=== PATIENT | female | born 1940 | race Caucasian/White ===

== ENCOUNTER 2025-07-21 19:49 | Emergency (ER) | payer MEDICARE, OTHER, SELFPAY ==
[2025-07-21] VITALS (14 sets, daily range): BP systolic 90–174; BP diastolic 46–82; PULSE 65–82; RESP 15–23; TEMP 36.4; O2SAT 91–100; BMI 25.3
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
--- NOTE | 2025-07-21 20:24 | ECG_ITS ---
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
[2025-07-21] MEDS: morphine 4 mg/mL SDV 1 mL 2 MG IVP ×2 (20:38→23:41)
[2025-07-21 20:58] LABS: Hematocrit 28.1 % (36-47); Hemoglobin 8.70 g/dL (11.27-16.99); Mean Corpuscular HGB Conc 31.0 g/dL (30-55); Mean Corpuscular Hemoglobin 29.6 pg (27-33); Mean Corpuscular Volume 95.6 fl (85-98); Nucleated Red Blood Cells % 0 %; Platelet Count 143 10^3/cmm (157-399); Red Blood Count 2.94 10^6/uL (3.85-5.65); White Blood Count 21.24 10^3/uL (3.29-11.43)
[2025-07-21 21:15] LABS: INR 1.01 (0.8-1.2); Prothrombin Time 14.00 SECONDS (12.1-14.9)
[2025-07-21 21:16] LABS: Slide Review Slide Review Perform
[2025-07-21 21:17] LABS: Partial Thromboplastin Time 26.2 SECONDS (23.9-36.7)
[2025-07-21 21:20] LABS: Troponin(5th) Baseline 24 ng/L (0-10)
[2025-07-21 21:33] LABS: Alanine Aminotransferase 14 U/L (0-33); Albumin Level 4.3 g/dL (3.5-5.2); Alkaline Phosphatase 81 U/L (35-105); Anion Gap 13.0 (5-19); Aspartate Amino Transferase 27 U/L (0-32); Blood Urea Nitrogen 17 mg/dL (8-23); Calcium 9.2 mg/dL (8.5-10.5); Carbon Dioxide 30 mmol/L (22-29); Chloride 94 mmol/L (98-107); Globulin 1.2 g/dL (1.3-4.6); Glucose 150 mg/dL (65-115); NT Pro B Type Natriuretic Pept 856 pg/mL (0-450); Osmolality Calculated 280 mOsm/kg (285-295); Potassium 4.0 mmol/L (3.5-5.1); Sodium 133 mmol/L (136-145); Total Protein 5.5 g/dL (6.6-8.7)
[2025-07-21 21:48] LABS: Glucose Urine UA Negative (Normal); Nitrate Urine Negative (Negative); Specific Gravity, Urine 1.005 (1.005-1.030)
[2025-07-21 21:50] LABS: Add Urine Microscopic? YES
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
[2025-07-22] VITALS (26 sets, daily range): BP systolic 82–145; BP diastolic 40–75; PULSE 69–89; RESP 14–20; TEMP 36.6; O2SAT 89–99
[2025-07-22] MEDS: HYDROmorphone 0.5 MG/0.5 ML INJ IVP (01:38)
[2025-07-22 04:21] LABS: Hematocrit 22.2 % (36-47); Hemoglobin 7.00 g/dL (11.27-16.99); Mean Corpuscular HGB Conc 31.5 g/dL (30-55); Mean Corpuscular Hemoglobin 29.9 pg (27-33); Mean Corpuscular Volume 94.9 fl (85-98); Nucleated Red Blood Cells % 0 %; Platelet Count 131 10^3/cmm (157-399); Red Blood Count 2.34 10^6/uL (3.85-5.65); White Blood Count 13.99 10^3/uL (3.29-11.43)
[2025-07-22] MEDS: FUROsemide 10 mg/mL SDV 2mL 20 MG IVP (04:45)
--- NOTE | 2025-07-22 05:18 | PC.NURSE ---
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 Addendum entered by Nannette Judd RN 07/22/25 07:06: PT REPORT GIVEN TO SURVIVAL FLIGHT. SURVIVAL FLIGHT AT BEDSIDE WITH PATIENT WAITING ON [facility] [facility]. Addendum entered by Nannette Judd RN 07/22/25 06:33: VITALS @0633 97.9 TEMP, 75 HR, 95% SPO2 ON ROOM AIR, 20 RR, 95/45 BP. Addendum entered by Nannette Judd RN 07/22/25 06:17: VITALS @0618 98.0 TEMP, 72 HR, 99% SPO2 ON ROOM AIR, 18 RR, 97/44 BP. BLOOD TRANSFUSION REMAINS AT 175ML/HR @0620. Addendum entered by Nannette Judd RN 07/22/25 06:03: VITALS @0603 97.8 TEMP, 72 HR, 96% SPO2 ON ROOM AIR, 20 RR, 94/47 BP. BLOOD TRANSFUSION INCREASED TO 175 ML/HR @0604. Addendum entered by Nannette Judd RN 07/22/25 05:47: VITALS @0548 98.1 TEMP, 74 HR, 95% SPO2 ON ROOM AIR, 18 RR, 88/43 BP. BLOOD TRANSFUSION INCREASED TO 125ML/HR @0549. Original Note: PT HGB DROPPED FROM 8.7 TO 7. PT IS GOING TO BE TRANSFERRED VIA FIXED WING TO [facility]. PT IS NEEDING A BLOOD TRANSFUSION. 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 BLOOD STARTED PER PROTOCOL 50ML/HR @0518. UNIT #: [id number] / O RH POSITIVE VITALS: 98.2 TEMP, 80 HR, 95% SPO2 ON ROOM AIR, 20 RR, 81/42 BP. 15 MINUTE VITALS @0533: 97.8 TEMP, 75 HR, 96% SPO2 ON ROOM AIR, 20 RR, 89/43 BP. TRANSFUSION INCREASED TO 75ML/HR @0535.
== END 2025-07-22 07:27 | disposition short-term general hospital (02) ==
PROVIDERS: Emergency Provider Student in an Organized Health Care Education/Training Program
DX: S30.11XA Contusion of abdominal wall, initial encounter (principal); S22.32XA Fracture of one rib, left side, initial encounter for closed fracture; S20.01XA Contusion of right breast, initial encounter; S22.20XA Unspecified fracture of sternum, initial encounter for closed fracture; E11.22 Type 2 diabetes mellitus with diabetic chronic kidney disease; I12.9 Hypertensive chronic kidney disease with stage 1 through stage 4 chronic kidney disease, or unspecified chronic kidney disease; N18.9 Chronic kidney disease, unspecified; V48.5XXA Car driver injured in noncollision transport accident in traffic accident, initial encounter
CPT/HCPCS: 36415; 51702; 70450; 71045; 71250; 72125; 72170; 73562; 74176; 80053; 81001; 83880; 84484; 85025; 85610; 85730; 86850; 86900; 86920; 93005; 96374; 96375; 99285; 99291; J1171; J1938; J2270; J9999; P9016